=== PATIENT | female | born 1985 | race Two or more races ===

== ENCOUNTER 2019-12-06 14:19 | Emergency (ER) | payer OTHER ==
[~2019-12-06] VITALS: Ht 165.1 cm; Wt 54.4 kg
[2019-12-06 14:23] VITALS: BP 117/87
[2019-12-06] MEDS ORDERED: ACETAMINOPHEN 325 MG TAB PO ONE (16:15)
== END 2019-12-06 16:23 | disposition home or self-care (01) ==
LOC: ER 14:19
DX: L02.421 Furuncle of right axilla (principal); F32.9 Major depressive disorder, single episode, unspecified